=== PATIENT | male | born 1995 | race Two or more races ===

== ENCOUNTER 2024-02-17 16:44 | Emergency (ER) | payer OTHER ==
[2024-02-17 16:55] VITALS: BP 148/89; PULSE 90; RESP 18; TEMP 98; BMI 21.2
[2024-02-17 18:33] LABS: BASO % 0.8 % (0-2.0); EOS % 0.6 % (0-4.5); HEMOGLOBIN 12.9 GM/dL (11.7-16.9); LYMPH % 12.4 % (8-40); MCH 22.4 pg (25.7-33.7); MCHC 31.4 g/dl (32.0-35.9); MEAN CELL VOLUME 71.4 fl (80-96); NEUT % 79.2 % (42.8-82.8); PLATELET COUNT 302 10^3/uL (134-434); RBC 5.75 M/mm3 (4.00-5.60); RDW 15.2 % (11.9-15.9); WHITE BLOOD COUNT 14.5 K/mm3 (4.0-10.0)
[2024-02-17 18:46] LABS: POTASSIUM 4.4 mmol/L (3.5-5.1)
[2024-02-17 18:48] LABS: CALCIUM 9.6 mg/dL (8.5-10.1)
[2024-02-17 18:49] LABS: BLOOD UREA NITROGEN 11.2 mg/dL (7-18); MAGNESIUM 2.3 mg/dL (1.8-2.4)
[2024-02-17 18:51] LABS: CREATININE 0.9 mg/dL (0.55-1.3)
[2024-02-17 18:53] LABS: BILIRUBIN,TOTAL 0.3 mg/dL (0.2-1); TOT PROT 7.4 g/dl (6.4-8.2)
== END 2024-02-17 19:45 | disposition home or self-care (01) ==
LOC: JER 16:44
DX: R07.9 Chest pain, unspecified (principal)
CPT/HCPCS: 36415; 71046-TC-FY; 80053; 83735; 84484; 85025; 93005; 93010; 99285-25

== ENCOUNTER 2025-01-24 23:32 | Emergency (ER) | payer OTHER ==
[2025-01-24 23:47] VITALS: BP 137/97; PULSE 77; RESP 20; TEMP 98.6; BMI 22.1
== END 2025-01-25 01:13 | disposition home or self-care (01) ==
LOC: JER 23:32
DX: R00.2 Palpitations (principal); F41.9 Anxiety disorder, unspecified
CPT/HCPCS: 93005; 93010; 99283-25

== ENCOUNTER 2025-04-16 10:18 | Emergency (ER) | payer OTHER ==
[2025-04-16 10:26] VITALS: BP 142/94; PULSE 67; RESP 18; TEMP 98; BMI 21.2
[2025-04-16] MEDS ORDERED: RABIES VACCINE (PCEC)/PF 2.5 UNIT/VIAL IM ONE (11:28)
[2025-04-16] MEDS: RABIES VACCINE (PCEC)/PF 2.5 UNIT/VIAL IM ONE (11:39)
== END 2025-04-16 11:50 | disposition home or self-care (01) ==
LOC: JERFT 10:18
PROC: 3E0234Z Introduction of Serum, Toxoid and Vaccine into Muscle, Percutaneous Approach (ICD-10-PCS; principal; 2025-04-16)
DX: Z29.14 Encounter for prophylactic rabies immune globulin (principal)
CPT/HCPCS: 90675; 99284-25

== ENCOUNTER 2025-04-20 10:43 | Emergency (ER) | payer OTHER ==
[2025-04-20 10:59] VITALS: BP 141/87; PULSE 68; RESP 20; TEMP 98.1; BMI 22.8
[2025-04-20] MEDS ORDERED: RABIES VACCINE (PCEC)/PF 2.5 UNIT/VIAL IM ONE (11:46)
[2025-04-20] MEDS: RABIES VACCINE (PCEC)/PF 2.5 UNIT/VIAL IM ONE (11:58)
== END 2025-04-20 12:49 | disposition home or self-care (01) ==
LOC: JERFT 10:43
PROC: 3E0234Z Introduction of Serum, Toxoid and Vaccine into Muscle, Percutaneous Approach (ICD-10-PCS; principal; 2025-04-20)
DX: Z29.14 Encounter for prophylactic rabies immune globulin (principal)
CPT/HCPCS: 90471; 90675; 99281-25

== ENCOUNTER 2025-04-27 11:16 | Emergency (ER) | payer OTHER ==
[2025-04-27 11:22] VITALS: BP 136/91; PULSE 74; RESP 18; TEMP 98.6; BMI 21.9
[2025-04-27] MEDS ORDERED: RABIES VACCINE (PCEC)/PF 2.5 UNIT/VIAL IM ONE (11:38)
[2025-04-27] MEDS: RABIES VACCINE (PCEC)/PF 2.5 UNIT/VIAL IM ONE (11:43)
== END 2025-04-27 11:53 | disposition home or self-care (01) ==
LOC: JERFT 11:16
PROC: 3E0234Z Introduction of Serum, Toxoid and Vaccine into Muscle, Percutaneous Approach (ICD-10-PCS; principal; 2025-04-27)
DX: Z23 Encounter for immunization (principal)
CPT/HCPCS: 90675; 99281-25